=== PATIENT | female | born 1995 | race African-American/Black ===

== ENCOUNTER 2022-02-26 19:58 | Emergency (ER) | payer SELFPAY ==
[2022-02-26] MEDS ORDERED: Ketorolac Tromethamine 30 MG/ML VIAL ONE (20:52)
== END 2022-02-26 21:49 | disposition home or self-care (01) ==
LOC: CSHERS 19:58
DX: S82.52XA Displaced fracture of medial malleolus of left tibia, initial encounter for closed fracture (principal); X50.9XXA Other and unspecified overexertion or strenuous movements or postures, initial encounter
CPT/HCPCS: J1885

== ENCOUNTER 2023-09-13 19:41 | Emergency (ER) | payer SELFPAY | END 2023-09-13 20:23 | disposition home or self-care (01) | LOC: CSHERS 19:41 | DX: J30.9 Allergic rhinitis, unspecified (principal); H92.03 Otalgia, bilateral; H69.93 Unspecified Eustachian tube disorder, bilateral | CPT/HCPCS: 99282 ==